=== PATIENT | female | born 1980 | race Caucasian/White ===

== ENCOUNTER 2019-08-04 09:06 | Outpatient (RCR) | payer MEDICARE, MEDICAID | END 2019-11-02 | disposition home or self-care (01) | LOC: CARD 09:06 | PROVIDERS: ATTEND Internal Medicine Cardiovascular Disease | DX: I11.0 Hypertensive heart disease with heart failure (principal); I50.22 Chronic systolic (congestive) heart failure | CPT/HCPCS: 93225; 93226 ==

== ENCOUNTER → 2019-11-08 | Outpatient (CLI) | payer MEDICARE, MEDICAID ==
[2019-11-13 12:35] VITALS: BP 126/79
--- NOTE | 2019-11-13 12:35 | Cardiology Stress Test Report ---
Stress Test Report Date of Procedure/Referring: Date of Procedure: Nov 08, 2019 PCP Selin Donovan Admitting Physician [place]/Count Includes [facility] Indications: Chest pain Baseline Heart Rate: 41 Baseline Blood Pressure: Blood Pressure Systolic: 126 Blood Pressure Diastolic: 79 Baseline EKG: Baseline EKG: sinus bradycardia Summary/Conclusion: Summary: In summary, the patient started exercising with a baseline heart rate, blood pressure and EKG mentioned above Patient was able to exercise for a total of 10:30 minutes on Merrill protocol, 12.1 METs Maximum heart rate 164 Maximum blood pressure 201/67 Stress EKG Minimal nondiagnostic changes Recovery EKG Return to baseline Conclusion: 1. Good exercise tolerance for a total of minutes on Merrill protocol, METs, achieving percent of maximum expected heart rate 2. Minimal nondiagnostic EKG changes with exercise returned to baseline during recovery 3. No arrhythmia was noted 4. Baseline sinus bradycardia improved appropriately with exercise returned to baseline during recovery POLLY HO MD Nov 13, 2019 12:35
== END ==
LOC: CARD 12:12
PROVIDERS: ATTEND Physician Assistant
DX: I11.0 Hypertensive heart disease with heart failure (principal); I50.9 Heart failure, unspecified
CPT/HCPCS: 93017; 93306

== ENCOUNTER 2022-09-08 17:14 | Outpatient (CLI) | payer MEDICARE, MEDICAID ==
[~2022-09-08] VITALS: Ht 175.3 cm; Wt 84.4 kg
[2022-09-08 17:35] VITALS: BP 111/65
[2022-09-08 17:41] LABS: CLARITY,URINE TURBID; COLOR,URINE DARK YELLOW; GLUCOSE, URINE (UA) NEGATIVE (NEGATIVE); KETONES,URINE 2+ (NEGATIVE); LEUKOCYTE ESTERASE ,URINE 1+ (NEGATIVE); NITRITE,URINE NEGATIVE (NEGATIVE); PROTEIN,URINE 2+ (NEGATIVE)
[2022-09-08 17:59] LABS: BACTERIA,URINE LARGE /HPF; BILIRUBIN,URINE 2+ (NEGATIVE); SQUAMOUS EPITHELIAL CELL,UR 25-50 /HPF
[2022-09-08 18:58] LABS: BASOPHILS % (AUTO) 0 % (0-10); EOSINOPHILS # (AUTO) 0.1 10^3/uL (0.0-0.3); EOSINOPHILS % (AUTO) 1 % (0-10); HEMATOCRIT 32 % (35-52); HEMOGLOBIN 10.8 g/dL (11.5-16.0); LYMPHOCYTES # (AUTO) 1.6 10^3/uL (1.0-4.0); LYMPHOCYTES % (AUTO) 21 % (12-44); MEAN CORPUSCULAR HEMOGLOBIN 30 pg (25-34); MEAN CORPUSCULAR HGB CONC 34 g/dL (32-36); MEAN CORPUSCULAR VOLUME 88 fL (80-99); MONOCYTES # (AUTO) 0.6 10^3/uL (0.0-1.0); MONOCYTES % (AUTO) 8 % (0-12); NEUTROPHILS # (AUTO) 5.2 10^3/uL (1.8-7.8); NEUTROPHILS % (AUTO) 69 % (42-75); PLATELET COUNT 149 10^3/uL (130-400); WHITE BLOOD COUNT 7.5 10^3/uL (4.3-11.0)
[2022-09-08] MEDS ORDERED: ASPI-999 PO (19:02)
[2022-09-08] MEDS ORDERED: IRON1TAB95 PO (19:02)
[2022-09-08] MEDS ORDERED: PREN-142 PO (19:02)
[2022-09-08 19:06] LABS: ALBUMIN 3.2 GM/DL (3.2-4.5)
[2022-09-08 19:07] LABS: POTASSIUM 3.4 MMOL/L (3.6-5.0)
[2022-09-08 19:11] LABS: BILIRUBIN,TOTAL 0.5 MG/DL (0.1-1.0)
[2022-09-08 19:13] LABS: CREATININE SERUM 0.59 MG/DL (0.60-1.30)
[2022-09-08] MEDS ORDERED: CEPHALEXIN 250 MG (KEFLEX) CAP PO SCH (20:45)
[2022-09-08] MEDS ORDERED: CEPH500T PO (20:47)
[2022-09-08] MEDS ORDERED: CEPHALEXIN 250 MG (KEFLEX) CAP PO ONE ×2 (20:50→21:45)
--- NOTE | 2022-09-09 07:49 | Physician Query-Final Dx ---
NYDIA,09/09/22 0749: Clinic Account Progress/Dx Physician Query: Please give diagnosis Please include # weeks gestation Date of Service Sep 08, 2022 at 17:14 MARIO ALBERTO NIELSEN MD 09/14/222005: Clinic Account Progress/Dx DIAGNOSIS: Diagnosis Third Trimester 33 week gestation N/V in [facility]DIA,MaySep 09, 2022 07:49 MARIO ALBERTO NIELSEN MD Sep 14, 2022 20:06
== END 2022-09-08 20:55 | disposition home or self-care (01) ==
LOC: WSo 17:14 → LDRP 17:15 → WSo 20:55
PROVIDERS: ATTEND Family Medicine
DX: O21.2 Late vomiting of pregnancy (principal); Z3A.33 33 weeks gestation of pregnancy
CPT/HCPCS: 80053; 81000; 82570; 84156; 85025; 87088; G0463; 36415; 99213

== ENCOUNTER → 2022-10-07 | Outpatient (CLI) | payer MEDICAID, MEDICARE ==
[~2022-10-07] MED LIST: ASPI-999 PO; CEPH500T PO; IRON1TAB95 PO; PREN-142 PO
== END ==
LOC: CARD 08:52
PROVIDERS: ATTEND Internal Medicine Cardiovascular Disease
DX: I34.0 Nonrheumatic mitral (valve) insufficiency (principal); I51.7 Cardiomegaly
CPT/HCPCS: 93306

== ENCOUNTER 2022-10-15 05:50 | Inpatient (IN) | payer MEDICARE ==
[~2022-10-15] VITALS: Ht 174 cm; Wt 88.8 kg
[2022-10-15] VITALS (50 sets, daily range): BP systolic 113–171; BP diastolic 55–97
--- OUTSIDE RECORDS SUMMARY | 2022-10-15 05:59 | XMS REPORT ---
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 Name Role Phone SWATI REED Unavailable PROBLEMS Type Condition ICD9-CM Code [id number] Code Onset Dates Condition S tatus W/U Status Risk SNOMED Code Notes Problem STD (female) A64 confirmed 1158863 Problem care in second trimester Z34.92 con firmed 265953395 Problem care in third trimester Z34.93 conf irmed [id number] Problem Mild intermittent asthma without complication J45.20 confirmed 231578847 Problem Anxiety F41.9 confirmed 01930168 Problem GERD without esophagitis K21.9 confirmed 516059597 Problem care in first trimester Z34.91 conf irm 756152577 Problem Post-traumatic stress disorder, unspecified F43.10 confirmed 37805110 Rule out MDD, Bipolar Disorder Problem Carpal tunnel syndrome of left wrist G56.02 confirmed 92960513 Problem Missed period N92.6 confirmed 823079 00 Problem Lumbago with sciatica, left side M54.42 conf irmed 929424053 Problem Lumbago with sciatica, right side M54.41 confirmed [id number] Problem Other chronic pain G89.29 confirmed 8 3397241 Problem Smoker F17.200 confirmed 64271189 ALLERGIES No Known Allergies ENCOUNTERS from 1980 to 2022-09-23 Encounter Location Date Provider Diagnosis [facility] [address] [facility] [id number] [place] [address] September, SWATI REED Bronchitis J40 ; Smo ker F17.200 and Mild intermittent asthma without complication J45.20 IMMUNIZATIONS Vaccine Route Administration Date Status PRIVATE FLULAVAL QUAD 0.5ML (6 MO AND UP) 2019 IM Intramuscular Apr 06, 2020 Administered PRIVATE FLULAVAL QUAD 0.5ML (6 MO AND UP) 2018 IM Intramuscular May 03, 2019 Administered PRIVATE TDAP (BOOSTRIX) IM Intramuscular August 12, 2022 Adminis tered SOCIAL HISTORY Sex Assigned At : Social History Observation Description Sex Assigned At Unknown Alcohol Screen (Audit-C) Question Answer Notes Did you have a drink containing alcohol in the past year? No Points 0 Interpretation Negative Cessation Question Answer Notes Date Tobacco Cessation Provided: 02/18/2022 Sexual History Question Answer Notes Had sex in the past 12 months (vaginal, oral, or anal)? Yes Last menstrual period 01/15/2022 Have you ever had a Sexually transmitted disease? Yes Prevention strategies discussed: Condoms with Men only Use protection? No Other? Yes PHQ2 Question Answer Notes In the last 2 weeks, how often have you had little interest or pleasure in doing things? Not at all In the last 2 weeks, how often have you been feeling down, depressed, or hopeless? Not at all Total PHQ2 Score 0 Tobacco use other than smoking: Question Answer Notes Are you an other tobacco user? No REASON FOR REFERRAL No Information VITAL SIGNS Height 69.5 in September, Weight 169.8 lbs September, Weight-kg 77.02 kg September, Temperature 98.7 degrees Fahrenheit September, Heart Rate 90 bpm September, Respiratory Rate 22 bpm September, Oximetry 97 % September, BMI 24.71 kg/m2 September, Blood pressure systolic 136 mmHg September, Blood pressure diastolic 80 mmHg September, MEDICATIONS Medication SIG (Take, Route, Frequency, Duration) Notes Start Da te End Date Status Iron 325 (65 Fe) MG 1 tablet Orally Once a day for 30 days Feb, Active Active Cephalexin 250 MG 1 capsule Orally every 6 hrs for 5 days Aug, Active Aspirin 81 MG 1 tablet Orally Once a day for 30 days 2022 Active metroNIDAZOLE 500 MG 1 tablet Orally Twice a day for 7 days Aug, Active PROCEDURES No Information RESULTS No Results REASON FOR VISIT Congestion-jspurlingWA MEDICAL (GENERAL) HISTORY Type Description Date Medical History unspecified cardiovascular condition Medical History hypertension Medical History depression,anxiety Medical History fibromyalgia Medical History osteomylitis Medical History Congestive Heart Failure- Dr Vasquez 0 Medical History GERD Surgical History carpal tunnel right hand Surgical History EGD h.pylori Hospitalization History Childbirth Goals Section No Information Health Concerns No Information MEDICAL EQUIPMENT No Information MENTAL STATUS No Information FUNCTIONAL STATUS No Information ASSESSMENTS Encounter Date Diagnosis Assessment Notes Treatment Notes Treatm ent Clinical Notes September, Bronchitis (ICD-10 - J40) Bronch itis: Care Instructions material was published September, Smoker (ICD-10 - F17.200) September, Mild intermittent asthma without complic ation (ICD-10 - J45.20) September, Other Medications as d irected, promote/support rest as able, push fluids to maintain hydration. Office visit if not improving. Your cold symptoms are cause by a virus, which means that antibiotics will not help with these symptoms. The following interventions may help you to feel better while their immune system is fighting the infection: For infants, use nasal saline drops and bulb suction of the nose as needed for cough or congestion. It is especially helpful to do this prior to feedings. For toddlers and older children, nasal saline sprays or rinses can be helpful. Cough and cold medications have not been found to be either safe or effective in children under 4 or even 6 years of age. However, a spoon-full of honey has been shown to be effective at reducing cough in children. Honey should not be given to children under 1 year of age. Other remedies that can be helpful include use of Vicks' Vapor-rub or generic equivalent, cool-mist humidifier (warm vaporizer can also be effective, but must take precautions to avoid mccauley/scalding from steam / hot water), and elevating your child's head while sleeping (but avoid use of pillows or sleep positioners in infants due to risk for SIDS). For older children, OTC cough and cold preparations might be helpful, but make sure to inspect the ingredients list on the package, and do not give more than one OTC medication if using any "multi-symptom" medication, especially if the medication includes a pain-reliever or fever-lacquer pin press operator. Call your medical provider or return to clinic if your child's symptoms do not start to improve after 7 to 10 days from onset of illness, for fever that starts after the third day of illness or persists for more than 2 days, or for worsening or new symptoms. If your child develops wheezing or is working hard to breathe, they should be taken to the closest hospital Emergency Department. PLAN OF TREATMENT Medication Medication Name Sig Start Date Stop Date metroNIDAZOLE 500 MG 1 tablet Orally Twice a day for 7 days 26 A pr, 2022 Treatment Notes Assessment Notes Clinical Notes Bronchitis Bronchitis: Care Instruction s material was published Next Appt Details as needed or reg fu with pcp Reason: Provider Name:MALIK GRAY, 2022-09-28 0 9:00:00 AM, [address] [facility], [id number], [place], [address], Provider Name:SHEREEN REINOSO, 09-30 02:30:00 PM, [address] [facility], [place], [address], Provider Name:JASON KENNY, 2022-10-07 02:00:00 PM, [address] [facility], [id number], [place], [address], Provider Name:WILBERT PITT, 2022-11-06 12:00:00 AM, [address] [facility], [id number], [place], [address], Insurance Providers Payer Name Payer Address Payer Phone Insured Name Patient Relati onship to Insured Coverage Start Date Coverage End Date Subscriber Number Group Nu mber NGS MEDICARE Part A [address] [facility] [phone] Self - patient is the insured [id number] [facility] 19 [address] [address] [place] [id number] Self - patient is the insured [id number] [facility] PART A [address] [facility] [address] Self - patient is the insured 2011 [id number] NON [facility] 19 [address] [address] [place] [phone] SerafinAugust Trinidad Self - patient is the insured [id number] [employer] MEDICARE [place] PLAN [address] [facility] [address] SerafinAugust Trinidad Self - patient is the insured 2022 [id number]
[2022-10-15] MEDS ORDERED: D5 LR IV SOLUTION 1,000 ML IV SCH (06:00)
[2022-10-15] MEDS ORDERED: CATHETER FLUSH 10 ML SYR IV SCH ×2 (06:00→14:00)
[2022-10-15] MEDS ORDERED: MINERAL OIL 30 ML UDC TOP PRN (06:00)
[2022-10-15] MEDS ORDERED: D5 LR IV SOLUTION 1,000 ML IV ONE (06:11)
[2022-10-15 06:19] LABS: BILIRUBIN,URINE NEGATIVE (NEGATIVE); CLARITY,URINE CLEAR; COLOR,URINE YELLOW; GLUCOSE, URINE (UA) NEGATIVE (NEGATIVE); KETONES,URINE NEGATIVE (NEGATIVE); LEUKOCYTE ESTERASE ,URINE 1+ (NEGATIVE); NITRITE,URINE NEGATIVE (NEGATIVE); PROTEIN,URINE NEGATIVE (NEGATIVE)
[2022-10-15 06:27] LABS: AMORPHOUS SEDIMENT,UR FEW AMOR URATES /LPF; BACTERIA,URINE MODERATE /HPF; SQUAMOUS EPITHELIAL CELL,UR 25-50 /HPF
[2022-10-15 06:30] LABS: BASOPHILS % (AUTO) 1 % (0-10); EOSINOPHILS # (AUTO) 0.2 10^3/uL (0.0-0.3); EOSINOPHILS % (AUTO) 2 % (0-10); HEMATOCRIT 33 % (35-52); HEMOGLOBIN 11.6 g/dL (11.5-16.0); LYMPHOCYTES # (AUTO) 1.6 10^3/uL (1.0-4.0); LYMPHOCYTES % (AUTO) 21 % (12-44); MEAN CORPUSCULAR HEMOGLOBIN 30 pg (25-34); MEAN CORPUSCULAR HGB CONC 35 g/dL (32-36); MEAN CORPUSCULAR VOLUME 86 fL (80-99); MONOCYTES # (AUTO) 0.7 10^3/uL (0.0-1.0); MONOCYTES % (AUTO) 9 % (0-12); NEUTROPHILS # (AUTO) 5.1 10^3/uL (1.8-7.8); NEUTROPHILS % (AUTO) 66 % (42-75); PLATELET COUNT 281 10^3/uL (130-400); WHITE BLOOD COUNT 7.8 10^3/uL (4.3-11.0)
--- NOTE | 2022-10-15 06:39 | History & Physical-OB ---
OB - Chief Complaint & HPI Date/Time Date of Admission: Date of Admission: October 15, 2022 at 05:50 Date seen by a Provider: October 15, 2022 Time Seen by a Provider: 06:30 Chief Complaint/History OB-Reason for Admission/Chief: Induction of Labor Hx : 8 Hx Para: 6 Expected Date of Delivery: October 22, 2022 Gestational Age in Weeks: 39 Gestational Age in Days: 0 Admission Nurse Assessment Rev: Yes History of Labs GBS negative Allergies and Home Medications Allergies Coded Allergies: No Known Allergies (Verified Allergy, Unknown, 09/08/22) Patient Home Medication List Home Medication List Reviewed: Yes Aspirin (Aspirin) 81 Mg Tab.chew, 81 MG PO, (Reported) Entered as Reported by: ANANDA CUEVAS on 09/08/221901 Cephalexin (Cephalexin) 500 Mg Tablet, 500 MG PO BID Prescribed by: ANMOL DRISCOLL on 09/08/222046 Iron,Carbonyl/Vit C/Vit B12/FA (Iron 100 Plus Tablet) 100 Mg-250 Mg-25 Mcg-1 Mg Tablet, 1 EACH PO, (Reported) Entered as Reported by: ANANDA CUEVAS on 09/08/221901 Vit No.124/Iron/FA ( Vitamin Tablet) 27 Mg Iron-800 Mcg Tablet, 1 EACH PO, (Reported) Entered as Reported by: ANANDA CUEVAS on 09/08/221901 OB - History Hx of Present Care: Yes Ultrasounds: Normal mid trimester US Obstetrical Complications: None Medical Complications: None Patient Past Medical History History of "CHF" and currently not on medication for. Social History/Family History 2nd Hand Smoke Exposure: Yes OB - Admission Exam Physical Exam HEENT: Moist Membranes Heart: Rhythm Normal Lungs: Clear Abdomen: Gravid Extremities: Normal Cervical Dilatation: 2cm Effacement: 50% Station: -3 Membranes: Intact Heart Rate: 130's Accelerations: Accelerations Present Decelerations: No Decelerations Short Term Variability: Present Snf Variability: Average (6-25) Contractions on Admission: None Intensity: Mild Lipscomb Scoring Tool (Modified) Dilation (cm): 1-2cm (1) Effacement (%): 31-51% (1) Descent/Station: -3 (0) Cervix Consistency: Medium(1) Cervix Position: Anterior (2) Add 1 point for: Each previous vaginal delivery (1) Lipscomb Score: 11 Labs Laboratory Tests Test 10/15/22 06:00 10/15/22 06:15 Range/Units Urine Color YELLOW Urine Clarity CLEAR Urine pH 6.0 5-9 Urine Specific [place] 1.020 1.016-1.022 Urine Protein NEGATIVE NEGATIVE Urine Glucose (UA) NEGATIVE NEGATIVE Urine Ketones NEGATIVE NEGATIVE Urine Nitrite NEGATIVE NEGATIVE Urine Bilirubin NEGATIVE NEGATIVE Urine Urobilinogen 1.0 < = 1.0 MG/DL Urine Leukocyte Esterase 1+ H NEGATIVE Urine RBC (Auto) NEGATIVE NEGATIVE Urine RBC 2-5 H /HPF Urine WBC 2-5 /HPF Urine Squamous Epithelial Cells 25-50 H /HPF Urine Crystals PRESENT H /LPF Urine Amorphous Sediment FEW DUNG URATES H /LPF Urine Bacteria MODERATE H /HPF Urine Casts NONE /LPF Urine Mucus SMALL H /LPF Urine Culture Indicated NO White Blood Count 7.8 4.3-11.0 10^3/uL Red Blood Count 3.86 3.80-5.11 10^6/uL Hemoglobin 11.6 11.5-16.0 g/dL Hematocrit 33 L 35-52 % Mean Corpuscular Volume 86 80-99 fL Mean Corpuscular Hemoglobin 30 25-34 pg Mean Corpuscular Hemoglobin Concent 35 32-36 g/dL Red Cell Distribution Width 13.5 10.0-14.5 % Platelet Count 281 130-400 10^3/uL Mean Platelet Volume 11.0 9.0-12.2 fL Immature Granulocyte % (Auto) 2 % Neutrophils (%) (Auto) 66 42-75 % Lymphocytes (%) (Auto) 21 12-44 % Monocytes (%) (Auto) 9 0-12 % Eosinophils (%) (Auto) 2 0-10 % Basophils (%) (Auto) 1 0-10 % Neutrophils # (Auto) 5.1 1.8-7.8 10^3/uL Lymphocytes # (Auto) 1.6 1.0-4.0 10^3/uL Monocytes # (Auto) 0.7 0.0-1.0 10^3/uL Eosinophils # (Auto) 0.2 0.0-0.3 10^3/uL Basophils # (Auto) 0.0 0.0-0.1 10^3/uL Immature Granulocyte # (Auto) 0.1 0.0-0.1 10^3/uL OB - Assessment/Plan/Diagnosis Assessment Assessment: induction of labor (at term 39 weeks.) Admission Dx 1. IUP at term 39 weeks. Admission Status: Inpatient Order (span 2 midnights) Reason for Inpatient Admission: L&D Plan Plan: Induction Induction Method: AROM Other Plan -pitocin as needed -desires epidural SHEREEN REINOSO MD October 15, 2022 06:39
[2022-10-15] MEDS ORDERED: OXYTOCIN PRE-MIX DRIP 500 ML IV SCH (07:15)
[2022-10-15] MEDS ORDERED: LACTATED RINGERS 1,000 ML IV ONE ×2 (08:15→09:00)
[2022-10-15] MEDS ORDERED: diphenhydrAMINE 50 MG/ML INJ (BENADRYL) IV PRN (09:00)
[2022-10-15] MEDS ORDERED: fentaNYL 2 mcg/ml BUPIVA 0.125 100 ML IV SCH (09:00)
[2022-10-15] MEDS ORDERED: ONDANSETRON 4 MG/2 ML (SDV) Z0FRAN IV PRN (09:00)
[2022-10-15] MEDS ORDERED: NALOXONE 0.4 MG/ML 1 ML (NARCAN) VIAL IV PRN ×2 (09:00→13:00)
[2022-10-15] MEDS ORDERED: CATHETER FLUSH 10 ML SYR IV PRN (09:00)
[2022-10-15] MEDS ORDERED: fentaNYL 2 mcg/ml BUPIVA 0.125 100 ML ONE (09:06)
[2022-10-15] MEDS ORDERED: fentaNYL INJ 100 MCG/2 ML AMP ONE (09:13)
[2022-10-15] MEDS ORDERED: BUPIVACAINE 0.25% 10 ML (SENSORCAINE) VIAL ONE (09:14)
[2022-10-15] MEDS ORDERED: MEPIVACAINE (CARBOCAINE) 2% 50 ML VIAL ONE (11:48)
--- NOTE | 2022-10-15 12:59 | OB Labor & Delivery Record ---
L&D History Date of Service Date of Service: October 15, 2022 History Expected Date of Delivery: October 22, 2022 Gestational Age in Weeks: 39 Hx : 8 Hx Para: 7 Complications Events: Routine care Operative Indications (Cesarea: N/A-Vaginal Delivery Intrapartal Events: None L&D Stage1 Stage One Onset of Labor - Date: October 15, 2022 Onset of Labor - Time: 06:28 Monitors and Tracing Monitor Mode: Internal Heart Rate: 125 Vital Signs VS - Last 72 Hours, by Label 10/15/22 06:21 Temp 37.0 Pulse 82 Resp 18 Pulse Ox 98 O2 Delivery Room Air Rupture of Membranes Amniotic Membrane Rupture Time: 627 L&D Stage2 Stage Two Stage II Date: October 15, 2022 Stage II Time: 12:00 Monitors and Tracing Monitor Mode: Internal Heart Rate: 125 Condition of Delivery 1 minute Comment: 9 5 minute Comment: 9 Condition of Infant Condition of : Living Exam: No Observed Abnormalities Resuscitation Resuscitation: N/A - Spontaneous Resp L&D Stage3 Stage Three Stage III Date: October 15, 2022 Stage III Time: 12:04 Placenta Delivery Placenta Delivery: Spontaneous Delivery Summary Summary Estimated blood loss (mL): 150 Condition of Delivery Examined: Cervix Examined Post Hemorrhage: No SHEREEN REINOSO MD October 15, 2022 12:59
[2022-10-15] MEDS ORDERED: TETANUS,DIPTH,PERTUSS P/F (BOOSTRIX) 0.5 ML VIAL IM ONE (13:00)
[2022-10-15] MEDS ORDERED: LIDOCAINE 1% INJ 20 ML VIAL IJ PRN (13:00)
[2022-10-15] MEDS ORDERED: MEASLES,MUMPS,RUBELLA 1 EA INJ SQ ONE (13:00)
[2022-10-15] MEDS: WITCH HAZEL(TUCKS) 40 EA JAR TOP PRN (13:36)
[2022-10-15] MEDS: BENZOCAINE/MENTHOL (DERMOPLAST) 56 ML CAN TP PRN (13:36)
[2022-10-15] MEDS ORDERED: METHYLERGONOVINE 0.2 MG/ML (METHERGINE) AMP IM ONE (13:45)
[2022-10-15] MEDS: IBUPROFEN 600 MG (MOTRIN) TAB PO SCH ×2 (13:45→20:37)
[2022-10-15] MEDS: NICOTINE 14 MG (NICODERM) PATCH TD SCH (17:07)
[2022-10-15] MEDS: ACETAMINOPHEN 500 MG TAB (TYLENOL) PO PRN (17:07)
[2022-10-15] MEDS: DOCUSATE SODIUM 100 MG (COLACE) CAP PO SCH (20:37)
[2022-10-16 00:29] VITALS: BP 138/65
[2022-10-16] MEDS: ACETAMINOPHEN 500 MG TAB (TYLENOL) PO PRN ×2 (01:47→09:40)
[2022-10-16] MEDS: IBUPROFEN 600 MG (MOTRIN) TAB PO SCH ×3 (01:47→16:28)
[2022-10-16 04:10] VITALS: BP 144/72
[2022-10-16 05:34] LABS: BASOPHILS % (AUTO) 0 % (0-10); EOSINOPHILS # (AUTO) 0.2 10^3/uL (0.0-0.3); EOSINOPHILS % (AUTO) 2 % (0-10); HEMATOCRIT 31 % (35-52); HEMOGLOBIN 10.5 g/dL (11.5-16.0); LYMPHOCYTES # (AUTO) 2.4 10^3/uL (1.0-4.0); LYMPHOCYTES % (AUTO) 23 % (12-44); MEAN CORPUSCULAR HEMOGLOBIN 30 pg (25-34); MEAN CORPUSCULAR HGB CONC 34 g/dL (32-36); MEAN CORPUSCULAR VOLUME 88 fL (80-99); MEAN PLATELET VOLUME 11.2 fL (9.0-12.2); MONOCYTES # (AUTO) 0.7 10^3/uL (0.0-1.0); MONOCYTES % (AUTO) 7 % (0-12); NEUTROPHILS # (AUTO) 6.7 10^3/uL (1.8-7.8); NEUTROPHILS % (AUTO) 66 % (42-75); PLATELET COUNT 235 10^3/uL (130-400); WHITE BLOOD COUNT 10.1 10^3/uL (4.3-11.0)
[2022-10-16 08:45] VITALS: BP 161/84
[2022-10-16] MEDS: DOCUSATE SODIUM 100 MG (COLACE) CAP PO SCH (08:49)
[2022-10-16] MEDS ORDERED: NICOTINE PATCH REMOVAL TP SCH (08:59)
[2022-10-16] MEDS ORDERED: SIMETHICONE 80 MG (MYLICON) CHEW PO PRN (09:15)
[2022-10-16] MEDS: WITCH HAZEL(TUCKS) 40 EA JAR TOP PRN (09:40)
[2022-10-16] MEDS: BENZOCAINE/MENTHOL (DERMOPLAST) 56 ML CAN TP PRN (09:40)
[2022-10-16 13:15] VITALS: BP 184/74
[2022-10-16] MEDS: NICOTINE 14 MG (NICODERM) PATCH TD SCH (13:16)
--- NOTE | 2022-10-16 13:30 | Discharge Summary ---
Diagnosis/Chief Complaint Date of Admission October 15, 2022 at 05:50 Date of Discharge October 16, 2022 Admission Diagnosis Admission Diagnosis 1. Intrauterine at term 39 weeks gestation Discharge Diagnosis 1. Intrauterine at term 39 weeks gestation Chief Complaint/HPI Chief Complaint/HPI 42-year-old 8 now term 6 L6 who initially presented to labor and delivery during the morning of October 15 for induction of labor. She was at 39 weeks 0 days gestation. Her GBS status was noted to be negative. Discharge Summary-OBS Procedures 1. Epidural per anesthesia 2. Spontaneous vaginal delivery Discharge Physical Examination Allergies: Coded Allergies: No Known Allergies (Verified Allergy, Unknown, 09/08/22) Vitals & I&Os Intake and Output 10/16/22 00:00 Intake Total 1275 ml Output Total 900 ml Balance 375 ml Vital Sign - Last 12Hours Date Time Temp Pulse Resp B/P (MAP) Pulse Ox O2 Delivery O2 Flow Rate FiO2 10/16/22 13:15 36.7 72 18 184/74 (110) 98 Room Air General Appearance: Alert, Oriented X3 HEENT: Atraumatic Respiratory: Clear to Auscultation Cardiovascular: Regular Rate Abdominal: Normal Bowel Sounds, Soft (With uterus firm) Hospital Course Was the Problem List Reviewed?: Yes upon admission she underwent placement of scalp electrode. She was noted to have clear fluid. She ultimately went on to deliver spontaneous vaginal at 1200. Patient had received epidural. There was no perineal lacerations. See labor and delivery note for full details. Following delivery she underwent routine care orders. She had no complications during the remainder of hospital stay. She had bled briefly following but this was controlled with Methergine IM. she was noted to have a hemoglobin of 10 point 5 in the morning of October 16 compared to admission of 11.6. She was without shortness of breath and felt ready for dismissal during the early afternoon of October 16, 2022. She will follow up with myself in 6 weeks and contact me sooner if any complications noted Labs Laboratory Tests 10/16/22 05:19: White Blood Count 10.1, Red Blood Count 3.50L, Hemoglobin 10.5L, Hematocrit 31L, Mean Corpuscular Volume 88, Mean Corpuscular Hemoglobin 30, Mean Corpuscular Hemoglobin Concent 34, Red Cell Distribution Width 13.2, Platelet Count 235, Mean Platelet Volume 11.2, Immature Granulocyte % (Auto) 2, Neutrophils (%) (Auto) 66, Lymphocytes (%) (Auto) 23, Monocytes (%) (Auto) 7, Eosinophils (%) (Auto) 2, Basophils (%) (Auto) 0, Neutrophils # (Auto) 6.7, Lymphocytes # (Auto) 2.4, Monocytes # (Auto) 0.7, Eosinophils # (Auto) 0.2, Basophils # (Auto) 0.0, Immature Granulocyte # (Auto) 0.2H Discharge Instructions to patient/family Please see electronic discharge instructions given to patient. Discharge Medications Reviewed and agree with Discharge Medication list on patient's Discharge Ins truction sheet SHEREEN REINOSO MD October 16, 2022 13:30
[2022-10-16] MEDS ORDERED: NICO1PAT38 TD (13:31)
--- NOTE | 2022-10-16 13:32 | Discharge Inst-Women's Service ---
Discharge Inst-Women's Serv Depart Medication/Instructions New, Converted or Re-Newed RX: Transmitted to Pharmacy ([facility]) Problems Reviewed?: Yes Consults/Follow Up Additional Follow Up: Yes (Dr Reinoso In 6 weeks) Activity Driving Instructions: No Driving for 1 Week Nothing Inside Vagina: No [place] (For 6 weeks) Diet Discharge Diet: Regular Diet Return to The Hospital For: As below Symptoms to Report to : Bleeding Excessive, Fever Over 101 Degrees F, Pain/Pressure in Chest, Vaginal Discharge Foul, Shortness of Breath For Any Problems or Questions: Contact Your Physician, Go to Emergency Room SHEREEN REINOSO MD October 16, 2022 13:32
[2022-10-16 14:20] VITALS: BP 145/65
[2022-10-16 17:55] VITALS: BP 145/65
== END 2022-10-16 17:55 | disposition home or self-care (01) | DRG 807 ==
LOC: LDRP 05:50
PROVIDERS: ADMIT Family Medicine; ATTEND Family Medicine
PROC: 10E0XZZ Delivery of Products of Conception, External Approach (ICD-10-PCS; principal; 2022-10-15)
PROC: 10907ZC Drainage of Amniotic Fluid, Therapeutic from Products of Conception, Via Natural or Artificial Opening (ICD-10-PCS; 2022-10-15)
PROC: 3E033VJ Introduction of Other Hormone into Peripheral Vein, Percutaneous Approach (ICD-10-PCS; 2022-10-15)
DX: O80 Encounter for full-term uncomplicated delivery (principal); Z37.0 Single live birth; Z3A.39 39 weeks gestation of pregnancy; Z79.82 Long term (current) use of aspirin
CPT/HCPCS: 36415; 81000; 85025; 86780; 86850; 86900; 86901

== ENCOUNTER 2022-10-20 16:10 | Observation (INO) | payer MEDICARE ==
[2022-10-20] VITALS (25 sets, daily range): BP systolic 139–198; BP diastolic 57–94
[~2022-10-20 16:10] MED LIST changes: +NICO1PAT38 TD
--- NOTE | 2022-10-20 16:21 | ED General ---
General Chief Complaint: (<6 weeks) Stated Complaint: CHEST PAIN - HIGH BP Source of Information: Patient Exam Limitations: No Limitations History of Present Illness Date Seen by Provider: October 20, 2022 Time Seen by Provider: 16:12 Initial Comments 42-year-old female presents to the emergency department from the [facility] clinic. She was sent over because she is having chest pain, shortness of breath and elevated blood pressures. She is 5 days . Has had a history of preeclampsia. She also felt that she had pulmonary edema after one of her pregnancies. She had a spontaneous vaginal delivery that was uncomplicated. She stayed overnight and went home the next day. She states she was having the symptoms at the time of discharge. She is not on any blood pressure medications. She denies any unilateral lower extremity pain, swelling. She still having some mild vaginal bleeding that is very minuscule. No fevers or chills. No cough. Her delivery was performed by Dr. Knutson. All other systems reviewed and negative except documented per HPI. Voice recognition software was used to help create this chart Allergies and Home Medications Allergies Coded Allergies: No Known Allergies (Verified Allergy, Unknown, 09/08/22) Patient Home Medication List Home Medication List Reviewed: Yes Cephalexin (Cephalexin) 500 Mg Tablet, 500 MG PO BID Prescribed by: ANMOL DRISCOLL on 09/08/222046 Iron,Carbonyl/Vit C/Vit B12/FA (Iron 100 Plus Tablet) 100 Mg-250 Mg-25 Mcg-1 Mg Tablet, 1 EACH PO, (Reported) Entered as Reported by: ANANDA CUEVAS on 09/08/221901 Nicotine (Nicoderm Cq) 14 Mg/24 Hour Patch.td24, 14 MG TD DAILY@0900 Prescribed by: SHEREEN KNUTSON on 10/16/22 1331 Vit No.124/Iron/FA ( Vitamin Tablet) 27 Mg Iron-800 Mcg Tablet, 1 EACH PO, (Reported) Entered as Reported by: ANANDA CUEVAS on 09/08/221901 Discontinued Medications Aspirin (Aspirin) 81 Mg Tab.chew, 81 MG PO, (Reported) Entered as Reported by: ANANDA CUEVAS on 09/08/221901 Review of Systems Review of Systems Constitutional: see HPI Physical Exam Vital Signs Vital Signs - First Documented 10/20/22 16:14 Temp 36.7 Pulse 57 Resp 20 B/P (MAP) 176/99 (124) Pulse Ox 97 O2 Delivery Room Air Capillary Refill : Height, Weight, BMI Height: '" Weight: lbs. oz. kg; 29.33 BMI Method: General Appearance: No Apparent Distress, WD/WN Eyes: Bilateral Eye Normal Inspection, Bilateral Eye PERRL, Bilateral Eye EOMI HEENT: Normal ENT Inspection, Pharynx Normal Neck: Full Range of Motion, Normal Inspection, Non Tender, Supple Respiratory: Chest Non Tender, Lungs Clear, Normal Breath Sounds, No Accessory Muscle Use, No Respiratory Distress Cardiovascular: Regular Rate, Rhythm, No Murmur, Normal Peripheral Pulses Gastrointestinal: Normal Bowel Sounds, No Organomegaly, No Pulsatile Mass, Non Tender, Soft Extremity: Normal Capillary Refill, Normal Inspection, No Calf Tenderness, No Pedal Edema Neurologic/Psychiatric: Alert, Oriented x3 Skin: Normal Color, Warm/Dry Progress/Results/Core Measures Suspected Sepsis SIRS Temperature: Pulse: Respiratory Rate: Laboratory Tests 10/20/22 16:23: White Blood Count 8.9 Blood Pressure / Mean: Laboratory Tests 10/20/22 16:23: Creatinine 0.77, Platelet Count 288, Total Bilirubin 0.2 Results/Orders Lab Results Laboratory Tests Test 10/20/22 16:23 10/20/22 16:40 Range/Units White Blood Count 8.9 4.3-11.0 10^3/uL Red Blood Count 3.62 L 3.80-5.11 10^6/uL Hemoglobin 10.8 L 11.5-16.0 g/dL Hematocrit 32 L 35-52 % Mean Corpuscular Volume 88 80-99 fL Mean Corpuscular Hemoglobin 30 25-34 pg Mean Corpuscular Hemoglobin Concent 34 32-36 g/dL Red Cell Distribution Width 12.9 10.0-14.5 % Platelet Count 288 130-400 10^3/uL Mean Platelet Volume 10.8 9.0-12.2 fL Immature Granulocyte % (Auto) 2 % Neutrophils (%) (Auto) 70 42-75 % Lymphocytes (%) (Auto) 20 12-44 % Monocytes (%) (Auto) 7 0-12 % Eosinophils (%) (Auto) 2 0-10 % Basophils (%) (Auto) 0 0-10 % Neutrophils # (Auto) 6.2 1.8-7.8 10^3/uL Lymphocytes # (Auto) 1.8 1.0-4.0 10^3/uL Monocytes # (Auto) 0.6 0.0-1.0 10^3/uL Eosinophils # (Auto) 0.1 0.0-0.3 10^3/uL Basophils # (Auto) 0.0 0.0-0.1 10^3/uL Immature Granulocyte # (Auto) 0.1 0.0-0.1 10^3/uL Sodium Level 141 135-145 MMOL/L Potassium Level 4.1 3.6-5.0 MMOL/L Chloride Level 111 H 98-107 MMOL/L Carbon Dioxide Level 22 21-32 MMOL/L Anion Gap 8 5-14 MMOL/L Blood Urea Nitrogen 22 H 7-18 MG/DL Creatinine 0.77 0.60-1.30 MG/DL Estimat Glomerular Filtration Rate 99 BUN/Creatinine Ratio 29 Glucose Level 90 70-105 MG/DL Calcium Level 8.4 L 8.5-10.1 MG/DL Corrected Calcium 9.0 8.5-10.1 MG/DL Total Bilirubin 0.2 0.1-1.0 MG/DL Aspartate Amino Transf (AST/SGOT) 32 5-34 U/L Alanine Aminotransferase (ALT/SGPT) 48 0-55 U/L Alkaline Phosphatase 106 40-136 U/L Lactate Dehydrogenase 237 H 125-220 U/L Troponin I < 0.028 <0.028 NG/ML Total Protein 5.8 L 6.4-8.2 GM/DL Albumin 3.2 3.2-4.5 GM/DL Urine Color YELLOW Urine Clarity CLEAR Urine pH 7.0 5-9 Urine Specific [place] 1.015 L 1.016-1.022 Urine Protein NEGATIVE NEGATIVE Urine Glucose (UA) NEGATIVE NEGATIVE Urine Ketones NEGATIVE NEGATIVE Urine Nitrite NEGATIVE NEGATIVE Urine Bilirubin NEGATIVE NEGATIVE Urine Urobilinogen 0.2 < = 1.0 MG/DL Urine Leukocyte Esterase 1+ H NEGATIVE Urine RBC (Auto) 3+ H NEGATIVE Urine RBC 5-10 H /HPF Urine WBC 2-5 /HPF Urine Squamous Epithelial Cells 2-5 /HPF Urine Crystals PRESENT H /LPF Urine Calcium Oxalate Crystals FEW H /LPF Urine Bacteria FEW H /HPF Urine Casts NONE /LPF Urine Mucus NEGATIVE /LPF Urine Culture Indicated YES My Orders Orders - MONICO BUSTAMANTE DO Comprehensive Metabolic Panel (10/20/22 16:17) LDH (10/20/22 16:17) Urinalysis (10/20/22 16:17) Cbc With Automated Diff (10/20/22 16:17) Chest Pa/Lat (2 View) (10/20/22 16:17) Troponin I [place] (10/20/22 16:17) Urine Culture (10/20/22 16:40) Vital Signs/I&O 10/20/22 16:14 Temp 36.7 Pulse 57 Resp 20 B/P (MAP) 176/99 (124) Pulse Ox 97 O2 Delivery Room Air Capillary Refill : Departure Communication (Admissions) Patient is hemodynamically stable outside of hypertension. She does not take anything typically for hypertension but has had a history of preeclampsia in the past. She is also had some pulmonary edema in the past. She has no stigmata of DVT, PE at this time. Work-up comes back her EKG is nonischemic, troponin is negative. No evidence for ACS. Her chest x-ray does show some mild cardiomegaly and some mild central vascular congestion consistent with pulmonary edema. I will go ahead give her some hydralazine for her blood pressures now and defer further management to Dr. Godfrey. She accepts admission at this time Spoke to Dr Godfrey who agrees with admission. I will order hydralazine now and she will place further orders. Impression Primary Impression: hypertension Additional Impression: Pulmonary edema Qualified Codes: J81.0 - Acute pulmonary edema Disposition: ADMITTED INPATIENT Condition: Stable Departure-Patient Inst. Referrals: SHEREEN KNUTSON MD (PCP/Family) Primary Care Physician MONICO BUSTAMANTE DO October 20, 2022 16:21
[2022-10-20 16:30] LABS: BASOPHILS % (AUTO) 0 % (0-10); EOSINOPHILS # (AUTO) 0.1 10^3/uL (0.0-0.3); EOSINOPHILS % (AUTO) 2 % (0-10); HEMATOCRIT 32 % (35-52); HEMOGLOBIN 10.8 g/dL (11.5-16.0); LYMPHOCYTES # (AUTO) 1.8 10^3/uL (1.0-4.0); LYMPHOCYTES % (AUTO) 20 % (12-44); MEAN CORPUSCULAR HEMOGLOBIN 30 pg (25-34); MEAN CORPUSCULAR HGB CONC 34 g/dL (32-36); MEAN CORPUSCULAR VOLUME 88 fL (80-99); MEAN PLATELET VOLUME 10.8 fL (9.0-12.2); MONOCYTES # (AUTO) 0.6 10^3/uL (0.0-1.0); MONOCYTES % (AUTO) 7 % (0-12); NEUTROPHILS # (AUTO) 6.2 10^3/uL (1.8-7.8); NEUTROPHILS % (AUTO) 70 % (42-75); PLATELET COUNT 288 10^3/uL (130-400); WHITE BLOOD COUNT 8.9 10^3/uL (4.3-11.0)
--- NOTE | 2022-10-20 16:39 | Diagnostic Imaging Report ---
INDICATION: Dyspnea, chest pain. TECHNIQUE: PA and lateral chest obtained at 4:41 PM. FINDINGS: The heart is mildly enlarged. There is mild central vascular prominence. There is no focal infiltrate, pneumothorax, or pleural fluid. IMPRESSION: Mild cardiomegaly and central vascular prominence. No focal infiltrate, pneumothorax, or pleural fluid. Dictated by: Dictated on workstation # [id number]
[2022-10-20 16:50] LABS: ALANINE AMINOTRANSFERASE 48 U/L (0-55); ALBUMIN 3.2 GM/DL (3.2-4.5); ALKALINE PHOSPHATASE 106 U/L (40-136); BILIRUBIN,TOTAL 0.2 MG/DL (0.1-1.0); BUN/CREATININE RATIO 29; CALCIUM 8.4 MG/DL (8.5-10.1); CARBON DIOXIDE 22 MMOL/L (21-32); CHLORIDE 111 MMOL/L (98-107); CREATININE SERUM 0.77 MG/DL (0.60-1.30); GFR ESTIMATED 99; GLUCOSE 90 MG/DL (70-105); POTASSIUM 4.1 MMOL/L (3.6-5.0); SODIUM 141 MMOL/L (135-145); TOTAL PROTEIN 5.8 GM/DL (6.4-8.2)
[2022-10-20 16:54] LABS: BILIRUBIN,URINE NEGATIVE (NEGATIVE); CLARITY,URINE CLEAR; COLOR,URINE YELLOW; GLUCOSE, URINE (UA) NEGATIVE (NEGATIVE); KETONES,URINE NEGATIVE (NEGATIVE); LEUKOCYTE ESTERASE ,URINE 1+ (NEGATIVE); NITRITE,URINE NEGATIVE (NEGATIVE); PROTEIN,URINE NEGATIVE (NEGATIVE)
[2022-10-20 17:13] LABS: BACTERIA,URINE FEW /HPF
[2022-10-20 17:15] LABS: CALCIUM OXALATE CRYSTALS,UR FEW /LPF
[2022-10-20] MEDS ORDERED: hydrALAZINE (APESOLINE) 20 MG/ML VIAL IV STA (17:22)
[2022-10-20] MEDS ORDERED: NICOTINE 21 MG (NICODERM) PATCH TD NR (18:00)
[2022-10-20] MEDS ORDERED: hydrALAZINE (APESOLINE) 20 MG/ML VIAL IV PRN (18:00)
[2022-10-20] MEDS: LABETALOL HCL 20 MG/4 ML VIAL IV PRN ×3 (18:19→20:15)
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
[2022-10-20] MEDS ORDERED: IOHEXOL 350 MG/ML 100 ML (OMNIPAQUE 350) VIAL IV ONE (19:15)
[2022-10-20] MEDS ORDERED: NS 100 ML (IVPB) BAG IV ONE (19:15)
[2022-10-20] MEDS ORDERED: RT-ALBUTEROL HFA 8.5 GM INHALER IH PRN (19:15)
[2022-10-20] MEDS ORDERED: FUROSEMIDE 40 MG/4 ML INJ (LASIX) IVP ONE (19:30)
--- NOTE | 2022-10-20 20:05 | Diagnostic Imaging Report ---
INDICATION: Hemoptysis, shortness of air COMPARISON: Radiographs from the same date. TECHNIQUE: Multiple contiguous axial CT images are obtained through the chest after the administration of intravenous contrast dated 10/20/2022. Sagittal and coronal reformatted images are reviewed. This includes coronal MIP reformatted images. FINDINGS: No significant adenopathy within the chest. 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 No aneurysmal dilatation of the thoracic aorta. The heart is within normal limits in size. No significant pericardial effusion. Trace dependently layering bilateral pleural effusions. The trachea is patent. No pneumothorax. The lungs are clear of focal pulmonary opacity. No significant filling defect within the central or segmental pulmonary arteries. The spleen is enlarged measuring over 15 cm in AP dimension. A near 8 cm lobulated hypodensity is identified within the right hepatic lobe with more central focal hypodensity within it. The visualized upper abdomen is otherwise unremarkable. Minimal scattered degenerative changes without acute osseous abnormality. IMPRESSION: No significant pulmonary embolus. Tiny dependently layering bilateral pleural effusions. Near 8 cm indeterminate hypodensity within the right hepatic lobe. This is of uncertain etiology. This could relate to a benign hemangioma, though other etiologies such as focal nodular hyperplasia, adenoma, or even true malignancy would be additional considerations. Recommend clinical correlation and comparison to prior imaging. Further evaluation with CT or MRI of the abdomen with and without contrast using hepatic mass protocol would help to further evaluate. Splenomegaly. Dictated by: Dictated on workstation # [id number]
[2022-10-20] MEDS ORDERED: LABETALOL HCL 20 MG/4 ML VIAL ONE (21:02)
[2022-10-20] MEDS ORDERED: LABETALOL HCL 20 MG/4 ML VIAL IV PRN (22:00)
[2022-10-20] MEDS ORDERED: LABETALOL HCL 20 MG/4 ML VIAL IV ONE (22:00)
[2022-10-20] MEDS ORDERED: CALCIUM GLUC. 10% 4.65 MEQ/10 ML VIAL IV PRN (22:45)
[2022-10-20] MEDS ORDERED: MAGNESIUM 4 GM/100 ML IVPB 100 ML IV ONE (22:45)
[2022-10-20] MEDS ORDERED: D5 LR IV SOLUTION 1,000 ML IV ONE (23:09)
[2022-10-20] MEDS: D5 LR IV SOLUTION 1,000 ML IV SCH (23:42)
[2022-10-20] MEDS: ACETAMINOPHEN 500 MG TAB (TYLENOL) PO PRN (23:43)
[2022-10-21] VITALS (35 sets, daily range): BP systolic 110–177; BP diastolic 56–82
[2022-10-21] MEDS: MAGNESIUM SULFATE DRIP 500 ML IV SCH ×2 (00:03→20:18)
[2022-10-21] MEDS: ACETAMINOPHEN 500 MG TAB (TYLENOL) PO PRN ×2 (08:35→16:34)
[2022-10-21] MEDS ORDERED: LABETALOL HCL 20 MG/4 ML VIAL IV ONE (09:30)
[2022-10-21] MEDS: NIFEdipine ER 30 MG (PROCARDIA XL) TAB PO SCH (10:35)
[2022-10-21] MEDS ORDERED: D5 LR IV SOLUTION 1,000 ML IV ONE (13:38)
[2022-10-21] MEDS: D5 LR IV SOLUTION 1,000 ML IV SCH (13:41)
--- NOTE | 2022-10-21 14:00 | Progress Note ---
Subjective Subjective/Events-last exam Pt states she still has headache, has intermittent chest pressure. Overall feels a little better. Took up to 80 mg IV labetalol last night to get BP at goal, but is better this morning. Good UOP with lasix and is continued on IV magnesium currently. Echocardiogram being obtained at time of my exam around 0930. Objective Exam Last Set of Vital Signs Vital Signs Date Time Temp Pulse Resp B/P (MAP) Pulse Ox O2 Delivery O2 Flow Rate FiO2 10/21/22 12:20 67 10/21/22 11:35 20 120/57 (78) Room Air 10/21/22 09:48 97 10/21/22 08:17 36.6 Capillary Refill : Less Than 3 Seconds I&O Intake and Output 10/21/22 00:00 Intake Total 100 ml Balance 100 ml Intake IV Total 100 ml Daily Weight Change No General: Alert, No Acute Distress Lungs: Clear to Auscultation Abdomen: Normal Bowel Sounds, Soft Extremities: No Edema Psych/Mental Status: Mood NL Results/Procedures Lab Laboratory Tests 10/20/22 16:23: White Blood Count 8.9, Red Blood Count 3.62L, Hemoglobin 10.8L, Hematocrit 32L, Mean Corpuscular Volume 88, Mean Corpuscular Hemoglobin 30, Mean Corpuscular Hemoglobin Concent 34, Red Cell Distribution Width 12.9, Platelet Count 288, Mean Platelet Volume 10.8, Immature Granulocyte % (Auto) 2, Neutrophils (%) (Auto) 70, Lymphocytes (%) (Auto) 20, Monocytes (%) (Auto) 7, Eosinophils (%) (Auto) 2, Basophils (%) (Auto) 0, Neutrophils # (Auto) 6.2, Lymphocytes # (Auto) 1.8, Monocytes # (Auto) 0.6, Eosinophils # (Auto) 0.1, Basophils # (Auto) 0.0, Immature Granulocyte # (Auto) 0.1, Sodium Level 141, Potassium Level 4.1, Chloride Level 111H, Carbon Dioxide Level 22, Anion Gap 8, Blood Urea Nitrogen 22H, Creatinine 0.77, Estimat Glomerular Filtration Rate 99, BUN/Creatinine Ratio 29, Glucose Level 90, Calcium Level 8.4L, Corrected Calcium 9.0, Total Bilirubin 0.2, Aspartate Amino Transf (AST/SGOT) 32, Alanine Aminotransferase (ALT/SGPT) 48, Alkaline Phosphatase 106, Lactate Dehydrogenase 237H, Troponin I < 0.028, B-Type Natriuretic Peptide 136.6H, Total Protein 5.8L, Albumin 3.2 10/20/22 16:40: Urine Color YELLOW, Urine Clarity CLEAR, Urine pH 7.0, Urine Specific [place] 1.015L, Urine Protein NEGATIVE, Urine Glucose (UA) NEGATIVE, Urine Ketones NEGATIVE, Urine Nitrite NEGATIVE, Urine Bilirubin NEGATIVE, Urine Urobilinogen 0.2, Urine Leukocyte Esterase 1+H, Urine RBC (Auto) 3+H, Urine RBC 5-10H, Urine WBC 2-5, Urine Squamous Epithelial Cells 2-5, Urine Crystals PRESENTH, Urine Calcium Oxalate Crystals FEWH, Urine Bacteria FEWH, Urine Casts NONE, Urine Mu cus NEGATIVE, Urine Culture Indicated YES Radiology 10/20/22 CXR: Mild cardiomegaly and central vascular prominence. No focal infiltrate, pneumothorax, or pleural fluid. Assessment/Plan Assessment/Plan (1) hypertension Status: Acute Assessment & Plan: Concern for possible preeclampsia versus peripartum cardiomyopathy. No proteinuria, normal liver enzymes and renal function, currently more suspicious of cardiomyopathy. Received one dose of IV hydralazine in ER without benefit. Labetalol ordered, starting with 20 mg IV. Will give a dose of lasix as well. Check BNP, echocardiogram. If BP not improving with labetalol, consider course of magnesium for possible preeclampsia. 10/21- initiated magnesium last night, required labetal 20 mg, 40 mg, 20 mg (inadvertent underdose given when using protocol), and 80 mg as well as hydralazine 5 mg and then 10 mg to get BP below 160/110. One high reading this am, will repeat labetalol 80 mg IV x one and start oral nifedipine. Awaiting echo results. (2) Hemoptysis Status: Acute Assessment & Plan: Given shortness of breath and hemoptysis with recent delivery, concern for PE. No hypoxia, but significant SOA symptoms. Will check CTA. CTA neg for PE. (3) Mother currently breast-feeding Status: Acute (4) Tobacco use Status: Chronic Assessment & Plan: Nicotine patch per request (5) Liver mass Assessment & Plan: Previously noted on echo, patient aware. Redemonstrated on CTA chest, 8 cm, needs dedicated CT or MRI liver when stable. (6) DVT prophylaxis Status: Acute Assessment & Plan: SCDs, follow up CTA chest. ANNE MARIE BURGOS MD October 21, 2022 14:00
[2022-10-21 15:13] LABS: HEMATOCRIT 32 % (35-52); HEMOGLOBIN 10.6 g/dL (11.5-16.0); MEAN CORPUSCULAR HEMOGLOBIN 29 pg (25-34); MEAN CORPUSCULAR HGB CONC 33 g/dL (32-36); MEAN CORPUSCULAR VOLUME 88 fL (80-99); MEAN PLATELET VOLUME 10.6 fL (9.0-12.2); PLATELET COUNT 297 10^3/uL (130-400); WHITE BLOOD COUNT 8.1 10^3/uL (4.3-11.0)
[2022-10-21 15:23] LABS: POTASSIUM 3.6 MMOL/L (3.6-5.0)
[2022-10-21 15:24] LABS: CALCIUM 7.9 MG/DL (8.5-10.1)
[2022-10-21 15:26] LABS: TOTAL PROTEIN 5.5 GM/DL (6.4-8.2)
[2022-10-21 15:27] LABS: BILIRUBIN,TOTAL 0.2 MG/DL (0.1-1.0)
[2022-10-21 15:29] LABS: CREATININE SERUM 0.72 MG/DL (0.60-1.30)
[2022-10-21] MEDS ORDERED: FUROSEMIDE 40 MG/4 ML INJ (LASIX) IVP NR (16:30)
[2022-10-21] MEDS: NICOTINE PATCH REMOVAL TP SCH (21:30)
[2022-10-21] MEDS: NICOTINE 21 MG (NICODERM) PATCH TD SCH (21:35)
[2022-10-22] VITALS (8 sets, daily range): BP systolic 148–168; BP diastolic 68–81
[2022-10-22 06:57] LABS: HEMATOCRIT 33 % (35-52); MEAN CORPUSCULAR HEMOGLOBIN 30 pg (25-34); MEAN CORPUSCULAR HGB CONC 34 g/dL (32-36); MEAN CORPUSCULAR VOLUME 88 fL (80-99); MEAN PLATELET VOLUME 10.9 fL (9.0-12.2); PLATELET COUNT 292 10^3/uL (130-400); WHITE BLOOD COUNT 6.8 10^3/uL (4.3-11.0)
[2022-10-22 07:18] LABS: ALANINE AMINOTRANSFERASE 39 U/L (0-55); ALKALINE PHOSPHATASE 96 U/L (40-136); BILIRUBIN,TOTAL 0.2 MG/DL (0.1-1.0); BUN/CREATININE RATIO 19; CARBON DIOXIDE 25 MMOL/L (21-32); CHLORIDE 109 MMOL/L (98-107); CREATININE SERUM 0.69 MG/DL (0.60-1.30); GFR ESTIMATED 111; GLUCOSE 81 MG/DL (70-105); POTASSIUM 4.2 MMOL/L (3.6-5.0); SODIUM 141 MMOL/L (135-145); TOTAL PROTEIN 5.5 GM/DL (6.4-8.2)
[2022-10-22] MEDS ORDERED: SIMETHICONE 80 MG (MYLICON) CHEW PO PRN (07:30)
[2022-10-22] MEDS ORDERED: NIFE-25 PO (07:48)
[2022-10-22] MEDS ORDERED: RT-ALBUINH INH (07:48)
[2022-10-22] MEDS: NICOTINE PATCH REMOVAL TP SCH (09:53)
[2022-10-22] MEDS: NICOTINE 21 MG (NICODERM) PATCH TD SCH (09:54)
[2022-10-22] MEDS ORDERED: FURO-125 PO (10:13)
--- NOTE | 2022-10-22 10:16 | Discharge Summary ---
Discharge Summary Hospital Course Problems/Diagnosis: (1) hypertension Status: Acute Assessment & Plan: Concern for possible preeclampsia versus peripartum cardiomyopathy. No proteinuria, normal liver enzymes and renal function, currently more suspicious of cardiomyopathy. Received one dose of IV hydralazine in ER without benefit. Labetalol ordered, starting with 20 mg IV. Will give a dose of lasix as well. Check BNP, echocardiogram. If BP not improving with labetalol, consider course of magnesium for possible preeclampsia. 10/21- initiated magnesium last night, required labetal 20 mg, 40 mg, 20 mg (inadvertent underdose given when using protocol), and 80 mg as well as hydralazine 5 mg and then 10 mg to get BP below 160/110. One high reading this am, will repeat labetalol 80 mg IV x one and start oral nifedipine. Awaiting echo results. 10/22- completed 24 hours of magnesium, headache resolved, blood pressure stable below 160/110 on oral nifedipine. Echo unremarkable. Discharged with nifeipine script and 5 days more lasix. (2) Hemoptysis Status: Resolved Resolution Date/Time: 10/22/22 @ 10:14 Assessment & Plan: Given shortness of breath and hemoptysis with recent delivery, concern for PE. No hypoxia, but significant SOA symptoms. Will check CTA. CTA neg for PE. (3) Mother currently breast-feeding Status: Acute (4) Tobacco use Status: Chronic Assessment & Plan: Nicotine patch per request (5) Liver mass Assessment & Plan: Previously noted on echo, patient aware. Redemonstrated on CTA chest, 8 cm, needs dedicated CT or MRI liver when stable. (6) Mild intermittent asthma Status: Chronic Assessment & Plan: Albuterol inhaler prescribed for prn use on discharge. Qualifiers: Qualified Codes: J45.20 - Mild intermittent asthma, uncomplicated Hospital Course Date of Admission: October 20, 2022 at 17:53 Admission Diagnosis : Family Physician/Provider: Arturo Knutson MD Date of Discharge: 10/22/22 Discharge Diagnosis: See problem list Hospital Course: See problem list Labs and Pending Lab Test: Laboratory Tests 10/21/22 15:04: White Blood Count 8.1, Red Blood Count 3.61L, Hemoglobin 10.6L, Hematocrit 32L, Mean Corpuscular Volume 88, Mean Corpuscular Hemoglobin 29, Mean Corpuscular Hemoglobin Concent 33, Red Cell Distribution Width 13.1, Platelet Count 297, Mean Platelet Volume 10.6, Sodium Level 141, Potassium Level 3.6, Chloride Level 107, Carbon Dioxide Level 24, Anion Gap 10, Blood Urea Nitrogen 15, Creatinine 0.72, Estimat Glomerular Filtration Rate 107, BUN/Creatinine Ratio 21, Glucose Level 98, Calcium Level 7.9L, Corrected Calcium 8.7, Total Bilirubin 0.2, Aspartate Amino Transf (AST/SGOT) 21, Alanine Aminotransferase (ALT/SGPT) 44, Alkaline Phosphatase 107, Total Protein 5.5L, Albumin 3.0L 10/22/22 06:01: White Blood Count 6.8, Red Blood Count 3.70L, Hemoglobin 11.0L, Hematocrit 33L, Mean Corpuscular Volume 88, Mean Corpuscular Hemoglobin 30, Mean Corpuscular Hemoglobin Concent 34, Red Cell Distribution Width 13.0, Platelet Count 292, Mean Platelet Volume 10.9, Sodium Level 141, Potassium Level 4.2, Chloride Level 109H, Carbon Dioxide Level 25, Anion Gap 7, Blood Urea Nitrogen 13, Creatinine 0.69, Estimat Glomerular Filtration Rate 111, BUN/Creatinine Ratio 19, Glucose Level 81, Calcium Level 8.0L, Corrected Calcium 8.8, Total Bilirubin 0.2, Aspartate Amino Transf (AST/SGOT) 15, Alanine Aminotransferase (ALT/SGPT) 39, Alkaline Phosphatase 96, Total Protein 5.5L, Albumin 3.0L, Troponin I < 0.028 Microbiology 10/20/22 Urine Culture - Final, Complete Gram Pos Mixed Bacterial Karla See Comments Home Meds Active Ventolin Hfa (Albuterol Sulfate) 1 Puff Puff 2 Puff INH Q4H PRN 1 PUFF = 90 MCG Nifedipine ER (Nifedipine) 30 Mg Tab.er.24 30 Mg PO DAILY Nicoderm Cq (Nicotine) 14 Mg/24 Hour Patch.td24 14 Mg TD DAILY@0900 30 Days Cephalexin 500 Mg Tablet 500 Mg PO BID 3 Days Reported Iron 100 Plus Tablet (Iron,Carbonyl/Vit C/Vit B12/FA) 100 Mg-250 Mg-25 Mcg-1 Mg Tablet 1 Each PO Vitamin Tablet ( Vit No.124/Iron/FA) 27 Mg Iron-800 Mcg Tablet 1 Each PO Assessment/Pt DC Instructions Follow up tomorrow at [facility] for a blood pressure check (nurse visit), follow up within the week for a physician visit. Discharge Diet: No Restrictions Activity as Tolerated: Yes (avoid strenuous activity x 6 weeks) Discharge Physical Examination Allergies: Coded Allergies: No Known Allergies (Verified Allergy, Unknown, 09/08/22) General Appearance: No Apparent Distress Respiratory: Lungs Clear, Normal Breath Sounds Cardiovascular: Regular Rate, Rhythm, No Murmur Gastrointestinal: Normal Bowel Sounds, Soft Extremity: No Pedal Edema Skin: Normal Color, Warm/Dry Neurologic/Psychiatric: Alert, Normal Mood/Affect ANNE MARIE BURGOS MD October 22, 2022 10:16
[2022-10-22] MEDS: NIFEdipine ER 30 MG (PROCARDIA XL) TAB PO SCH (10:43)
== END 2022-10-22 11:30 | disposition home or self-care (01) ==
LOC: EDUNIT# 16:10 → ER 16:11 → WS 17:53 → LDRP 23:00
PROVIDERS: ADMIT Family Medicine; ATTEND Family Medicine
DX: O16.5 Unspecified maternal hypertension, complicating the puerperium (principal); R04.2 Hemoptysis; R16.0 Hepatomegaly, not elsewhere classified; J45.20 Mild intermittent asthma, uncomplicated; J81.0 Acute pulmonary edema; F17.210 Nicotine dependence, cigarettes, uncomplicated
CPT/HCPCS: 71046; 71275; 80053 ×3; 81000; 83615; 83880; 84484 ×2; 85025; 85027 ×2; 87088; 94760 ×2; 96361; 96374; 96375 ×2; 96376 ×2; 99284; C8929; 36415; 93306